=== PATIENT | male | born 1990 | race Caucasian/White ===

== ENCOUNTER 2019-06-08 17:57 | Emergency (ER) | payer OTHER ==
[~2019-06-08] VITALS: Ht 185.4 cm; Wt 95.9 kg
[~2019-06-08 17:57] MED LIST: AMITRIPTYLINE H25 M2 PO; HYOSCYAMINE0.125 M1 SL; HYOSCYAMINE0.125 M2 PO; LOPERAMIDE 2 MG2 M1 PO; MAALOX ADVANCE355 M1 PO; NEXIUM40 MG; NEXIUM40 MG PO; PREDNISONE50 MG PO; VENTOLIN HFA 1818 GM INH; ZOFRAN ODT4 MG PO
[2019-06-08] MEDS ORDERED: CEPACOL SORE T1 EAC8 PO ×3 (21:12→21:36)
[2019-06-08] MEDS ORDERED: PREDNISONE 20 M20 MG PO ×3 (21:13→21:37)
[2019-06-08 21:55] VITALS: BP 149/93
== END 2019-06-08 21:57 | disposition home or self-care (01) ==
LOC: ER 17:57
DX: J02.8 Acute pharyngitis due to other specified organisms (principal); K58.9 Irritable bowel syndrome, unspecified; F17.210 Nicotine dependence, cigarettes, uncomplicated